=== PATIENT | male | born 1945 | race Caucasian/White ===

== ENCOUNTER → 2021-04-29 15:08 | Outpatient (CLI) | payer MEDICARE, OTHER, SELFPAY ==
--- NOTE | ~2021-04-29 | CT_ITS ---
EXAMINATION: CT diagnostic chest wo con EXAM DATE: 04/29/2021 15:32 INDICATION: Abn CXR, HX of Pneumonia, shortness of breath. TECHNIQUE: Spiral CT of the chest without contrast. Axial, coronal and sagittal images of the chest were reviewed. Coronal maximum intensity pixel images of chest reviewed. The dose-length product ( DLP) for this examination was 316.49 mGy-cm. The exposure was tailored according to patient size (au to mA exposure control), and iterative reconstruction (ASIR) was used as additional dose reduction [place]. There is no prior study for comparison. FINDINGS: There is moderate irregular septal thickening seen with peripheral bibasilar predominance a nd areas of groundglass opacity. 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 There are scattered small bilateral more solid density lung opacities could be the same process as ab ove, infectious or postinfectious. Consider 3-six-month follow-up chest CT without contrast. There are no pleural or pericardial effusions. Tracheobronchial tree is patent. There is no media stinal, hilar or axillary lymphadenopathy. There is no pneumothorax. Heart normal in size. Dens e right coronary artery, arteriosclerosis or stent. There is mild emphysema, mild bronchiectasis and mild hyperinflation. Upper abdomen is unremarkable. There is mild to moderate thoracic spondylosis without osteoblastic or osteolytic lesions identified. IMPRESSION: 1. NSIP pattern interstitial lung disease. 2. Some scattered small opacities could be same underlying etiology, pneumonia, postinfectious resid ua, cryptogenic organized pneumonia, recommend 3-6 month follow-up CT. 3. Mild emphysema, hyperinflation and bronchiectasis. Reviewed, dictated and finalized at location B. IMPRESSION: 1. NSIP pattern interstitial lung disease. 2. Some scattered small opacities could be same underlying etiology, pneumonia , postinfectious residua, cryptogenic organized pneumonia, recommend 3-6 month follow-up CT. 3. Mild emphysema, hyperinflation and bronchiectasis.
== END ==
PROVIDERS: PCP Family Medicine; Visit Provider Family Medicine
DX: R06.02 Shortness of breath (principal); R93.89 Abnormal findings on diagnostic imaging of other specified body structures; Z87.01 Personal history of pneumonia (recurrent); R91.8 Other nonspecific abnormal finding of lung field; J43.9 Emphysema, unspecified
CPT/HCPCS: 71250